=== PATIENT | male | born 1950 | race Caucasian/White ===

== ENCOUNTER → 2020-09-04 | Outpatient (CLI) | payer MEDICARE, OTHER ==
[2015-07-13 16:26] VITALS: BP 150/69
[~2020-09-04] MED LIST: ASPI325T8 PO; ATOR10TA PO; ATOR40TA59 PO; CYCL5TAB PO; METO50TA6 PO; MULT-18 PO; OXYC1TAB6 PO; RABE20TA18 PO; VALS1TAB22 PO; WARF-31 PO; WARF7.5T48 PO
--- NOTE | 2020-09-04 14:50 | RAD ---
EXAM: XR KNEE _3 VIEWS_LT 09/04/2020 2:35 PM CLINICAL INDICATION: Left knee pain COMPARISON: None TECHNIQUE: 3 views of the left FINDINGS: No acute fracture. Alignment is normal. Mild medial compartment narrowing. Old healed robins llar fracture with incongruity of the articular surface noted. No joint effusion. IMPRESSION: 1. No acute osseous abnormality. 2. Mild degenerative joint disease. 3. Old healed patellar fracture with incongruity of the articular surface. Electronically signed by: Marti Carmen MD (09/04/2020 2:48 PM) [id number]
== END ==
LOC: DXRAD 14:24
PROVIDERS: ATTEND Specialist
DX: M17.12 Unilateral primary osteoarthritis, left knee (principal)
CPT/HCPCS: 73562

== ENCOUNTER 2021-08-19 15:28 | Emergency (ER) | payer MEDICARE, OTHER ==
[~2021-08-19] VITALS: Ht 185.4 cm; Wt 117.0 kg
[~2021-08-19 15:28] MED LIST changes: -VALS1TAB22 PO; +VALS1TAB23 PO
[2021-08-19 15:39] VITALS: BP 174/87
--- NOTE | 2021-08-19 15:55 | PHYS DOC ---
Past History Past Medical History: GERD, High Cholesterol, Heart Disease, Hypertension Additional Past Medical Histor: HEART VALVE Past Surgical History: Tonsillectomy, Other Additional Past Surgical Histo: RIGHT WRIST, HEART VALVE, BACK Smoking: Non-smoker Alcohol Use: None Drug Use: None General Adult EDM: Chief Complaint: WRIST PAIN HPI: HPI: Patient is a 70-year-old male who arrives ambulatory to the emergency department complaining of injury to his right wrist. Patient reports that he fell backwards and tried to break his fall. Patient states in doing so he injured his right wrist. He is concerned because he has broken this previously and had surgery on this. Patient describes pain at the dorsal lateral aspect of his left wrist. Patient, who is [id number], denies any injury to his hand. He further denies any injury to his forearm or elbow of the ipsilateral side as well. He further denies any prodromal symptoms prior to falling or change in his level of consciousness from the fall. He is awake, alert and neurologically intact. He is nontoxic-appearing. Review of Systems: Review of Systems: Constitutional: Denies fever or chills Eyes: Denies change in visual acuity HENT: Denies nasal congestion or sore throat Respiratory: Denies cough or shortness of breath Cardiovascular: Denies chest pain or edema GI: Denies abdominal pain, nausea, vomiting, bloody stools or diarrhea : Denies dysuria Musculoskeletal: Reports joint/wrist pain. Denies back pain. Integument: Denies rash Neurologic: Denies headache, focal weakness or sensory changes Endocrine: Denies polyuria or polydipsia Lymphatic: Denies swollen glands Psychiatric: Denies depression or anxiety Allergies: Allergies: Allergies Coded Allergies Type Severity Reaction Last Updated Verified No Known Drug Allergies 08/19/21 No Physical Exam: PE: Constitutional: Well developed, well nourished, no acute distress, non-toxic appearance. [] HENT: Normocephalic, atraumatic, bilateral external ears normal, oropharynx moist, no oral exudates, nose normal. [] Eyes: PERRLA, EOMI, conjunctiva normal, no discharge. [] Neck: Normal range of motion, no tenderness, supple, no stridor. [] Cardiovascular:Heart rate regular rhythm, no murmur [] Lungs & Thorax: Bilateral breath sounds clear to auscultation [] Abdomen: Bowel sounds normal, soft, no tenderness, no masses, no pulsatile masses. [] Skin: Warm, dry, no erythema, no rash. [] Back: No tenderness, no CVA tenderness. [] Extremities: Patient has tenderness to palpation of the dorsal lateral aspect of the right wrist. There is minimal soft tissue swelling over this region as well. This is consistent with recent trauma. Range of motion testing is limited as it relates to the patient's pain. No cyanosis, no clubbing, no edema. [] Neurologic: Alert and oriented X 3, normal motor function, normal sensory function, no focal deficits noted. [] Psychologic: Affect normal, judgement normal, mood normal. [] Current Patient Data: Vital Signs: Vital Signs Date Time Temp Pulse Resp B/P (MAP) Pulse Ox O2 Delivery O2 Flow Rate FiO2 08/19/21 15:39 96.6 97 18 174/87 (116) 96 Room Air EKG: EKG: [] Radiology/Procedures: Radiology/Procedures: [][address] [address] IMAGING REPORT Signed PATIENT: LILLIAM SINGH ACCOUNT: [id number] : 1950 LOCATION: ER AGE: 70 SEX: M EXAM STATUS: REG ER ORD. PHYSICIAN: MACKENZIE AVELAR DO REASON: Trauma-HX OF SX. fell backward. PROCEDURE: WRIST 3V RIGHT EXAM: 3 views of the right wrist DATE: 08/19/2021 3:41 PM INDICATION: Reason: Trauma-HX OF SX. fell backward. / Spl. Instructions: / History: COMPARISON: No Prior FINDINGS: Orthopedic plate and screw construct appears appropriately aligned with the distal radius. There are curvilinear lucencies suggestive of a nondisplaced d istal radial fracture without evidence of intra-articular extension. The second most proximal screw fixation appears slightly proud. 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 There is also cortical remodeling of the distal ulnar styloid. There is mild circumferential soft tissue swelling about the wrist IMPRESSION: Findings suggestive of acute nondisplaced periprosthetic extra-articular radial fracture. Electronically signed by: Jorge Naranjo DO (08/19/2021 3:59 PM) [id number] DICTATED AND SIGNED BY: JORGE NARANJO DO DATE: 08/19/21 1549 CC: MACKENZIE AVELAR DO; HASEEB JOHN MD ~ Heart Score: C/O Chest Pain: No Risk Factors: Risk Factors: DM, Current or recent (<one month) smoker, HTN, HLP, family history of CAD, obesity. Risk Scores: Score 0 - 3: 2.5% MACE over next 6 weeks - Discharge Home Score 4 - 6: 20.3% MACE over next 6 weeks - Admit for Clinical Observation Score 7 - 10: 72.7% MACE over next 6 weeks - Early Invasive Strategies Course & Med Decision Making: Course & Med Decision Making Pertinent Labs and Imaging studies reviewed. (See chart for details) Patient has a nondisplaced fracture of the right distal radius. Patient had a splint placed for comfort. This was placed by nursing staff. Following splint placement, the patient was tested for sensory and motor deficit and did not have any. Patient states he feels better with the splint in place and is able to move his fingers without difficulty while maintaining sensation. The patient tolerated splint placement very well. He has been instructed to follow-up with orthopedics. [] Dragon Disclaimer: Dragon Disclaimer: This electronic medical record was generated, in whole or in part, using a voice recognition dictation system. Departure Departure: Impression: Primary Impression: Distal radius fracture, right Disposition: 01 HOME / SELF CARE / HOMELESS Condition: STABLE Referrals: HASEEB JOHN MD (PCP) Patient Instructions: Radius Fracture with Rehab-[facility] Scripts Hydrocodone Bit/Acetaminophen (HYDROCODONE-APAP 5-325 ) 1 Each Tablet 1 TAB PO PRN Q6HRS PRN for PAIN for 5 Days, #20 TAB 0 Refills Prov: MARGIE ROONEY 08/19/21 MACKENZIE AVELAR DO Aug 19, 2021 15:55
--- NOTE | 2021-08-19 16:02 | RAD ---
EXAM: 3 views of the right wrist DATE: 08/19/2021 3:41 PM INDICATION: Reason: Trauma-HX OF SX. fell backward. / Spl. Instructions: / History: COMPARISON: No Prior FINDINGS: Orthopedic plate and screw construct appears appropriately aligned with the distal radius. There are curvilinear lucencies suggestive of a nondisplaced distal radial fracture without evidence of intra-a rticular extension. The second most proximal screw fixation appears slightly proud. 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 There is also cortical remodeling of the dista l ulnar styloid. There is mild circumferential soft tissue swelling about the wrist IMPRESSION: Findings suggestive of acute nondisplaced periprosthetic extra-articular radial fracture. Electronically signed by: Kaleb Naranjo DO (08/19/2021 3:59 PM) [id number]
[2021-08-19] MEDS ORDERED: HYDR-2759 PO (16:11)
[2021-08-19] MEDS ORDERED: HYDR-2155 PO ×3 (16:12→16:16)
== END 2021-08-19 16:49 | disposition home or self-care (01) ==
LOC: ER 15:28
DX: S52.501A Unspecified fracture of the lower end of right radius, initial encounter for closed fracture (principal); K21.9 Gastro-esophageal reflux disease without esophagitis; E78.00 Pure hypercholesterolemia, unspecified; I11.9 Hypertensive heart disease without heart failure; W18.39XA Other fall on same level, initial encounter; Y93.89 Activity, other specified; Y92.89 Other specified places as the place of occurrence of the external cause; Y99.8 Other external cause status
CPT/HCPCS: 29125; 73110; 99284